=== PATIENT | female | born 1930 | race Caucasian/White ===

== ENCOUNTER 2016-09-16 15:46 | Emergency (ER) | payer MEDICARE ==
[2016-09-16 16:45] LABS: ABSOLUTE NEUTROPHIL COUNT 3.8 K/mm3 (1.8-7.7); BASO % 0.6 % (0.2-1.0); EOS % 0.2 % (0.9-2.9); HEMATOCRIT 34.9 % (37.0-47.0); HEMOGLOBIN 11.1 gm/l (12.0-16.0); IMM NEUT% 0.2 % (0-1); LYMPH # 0.8 (1.0-4.8); LYMPH % 15.5 % (15-45); MEAN CELL VOLUME 100.3 fl (81.0-99.0); MEAN CORPUSCULAR HEMOGLOBIN 31.9 pg (27.0-31.0); MEAN CORPUSCULAR HGB CONC 31.8 g/dl (33.0-37.0); MEAN PLATELET VOLUME 11.7 fl (7.4-10.4); MONO # 0.6 (0.0-0.8); MONO % 11.6 % (4-12); NEUT % 71.9 % (43-75); PLATELET COUNT 153 K/mm3 (130-400); RED CELL DISTRIBUTION WIDTH 13.9 % (11.5-14.5)
[2016-09-16 16:49] LABS: URINE BILIRUBIN NEGATIVE (NEGATIVE); URINE BLOOD 1+ (NEGATIVE); URINE GLUCOSE (UA) NEGATIVE (NEGATIVE); URINE LEUKOCYTE ESTERASE NEGATIVE (NEGATIVE); URINE NITRITE POSITIVE (NEGATIVE); URINE PROTEIN NEGATIVE (NEGATIVE); URINE UROBILINOGEN NORMAL (0-1 mg/dl)
[2016-09-16 16:51] LABS: URINE APPEARANCE CLEAR; URINE COLOR YELLOW
[2016-09-16 17:00] LABS: URINE RBC 0-2 /hpf
[2016-09-16 17:03] LABS: ALB/GLOB RATIO 1.6 (>1.0); ALBUMIN 3.9 gm/dL (3.5-5.7); CALCIUM 9.3 mg/dL (8.6-10.3); MAGNESIUM 2.2 mg/dL (1.9-2.7)
--- NOTE | 2016-09-16 17:04 | RAD ---
CHEST 2 VIEWS HISTORY: Confusion and weakness. Frontal and lateral chest radiographs dated 09/16/2016. COMPARISON: 09/28/2013 FINDINGS: FOCAL AIRSPACE OPACITY: No gross airspace consolidation. PLEURAL EFFUSION: None. CARDIOMEDIASTINAL SILHOUETTE: Aortic arch calcification. ADDITIONAL POSTPROCEDURAL CHANGE: Evidence of prior cervical fusion, lumbar fusion, and spinal stimulator placement. PNEUMOTHORAX: None identified. OSSEOUS STRUCTURES: Thoracic kyphosis and disc degeneration. IMPRESSION: No acute cardiopulmonary process noted. Evidence of aortic atherosclerosis. Interval change status post spinal fusion and spinal stimulator placement procedures.
[2016-09-16 17:05] LABS: URINE BACTERIA 4+; URINE EPITHELIAL CELLS 0 /hpf
[2016-09-16] MEDS ORDERED: CEFTRIAXONE SODIUM 1 G VIAL ONE (18:19)
[2016-09-16] MEDS ORDERED: SODIUM CHLORIDE 0.9% 100 ML IV ONE (18:20)
== END 2016-09-16 19:16 | disposition home or self-care (01) ==
LOC: ED 15:46
DX: N39.0 Urinary tract infection, site not specified (principal); R06.00 Dyspnea, unspecified; D64.9 Anemia, unspecified; I10 Essential (primary) hypertension
CPT/HCPCS: 83690; 83880; 85025; 87086; 80053; 87186; 83735; 84484; 81001; 71020; 99283 ×2; 96374; 93005 ×2; J0696; J7050

== ENCOUNTER 2016-09-19 18:09 | Observation (INO) | payer MEDICARE ==
[2016-09-19 18:43] LABS: ABSOLUTE NEUTROPHIL COUNT 6.7 K/mm3 (1.8-7.7); BASO % 0.1 % (0.2-1.0); EOS % 0.3 % (0.9-2.9); HEMATOCRIT 35.6 % (37.0-47.0); HEMOGLOBIN 11.6 gm/l (12.0-16.0); IMM NEUT% 0.4 % (0-1); LYMPH # 0.8 (1.0-4.8); LYMPH % 10.4 % (15-45); MEAN CELL VOLUME 98.1 fl (81.0-99.0); MEAN CORPUSCULAR HGB CONC 32.6 g/dl (33.0-37.0); MEAN PLATELET VOLUME 11.7 fl (7.4-10.4); MONO # 0.4 (0.0-0.8); MONO % 4.9 % (4-12); NEUT % 83.9 % (43-75); PLATELET COUNT 150 K/mm3 (130-400); RED CELL DISTRIBUTION WIDTH 13.7 % (11.5-14.5)
[2016-09-19] MEDS ORDERED: ALBUTEROL/IPRATROPIUM 2.5/0.5 MG 3 ML/EACH DOSE ONE (18:51)
[2016-09-19] MEDS ORDERED: SODIUM CHLORIDE 0.9% 500 ML ONE (19:01)
[2016-09-19] MEDS ORDERED: ONDANSETRON 4 MG/2ML 2 ML VIAL ONE (19:01)
[2016-09-19] MEDS ORDERED: ACETAMINOPHEN 325 MG TABLET ONE (19:01)
[2016-09-19 19:05] LABS: ALB/GLOB RATIO 1.6 (>1.0); ALBUMIN 3.6 gm/dL (3.5-5.7); CALCIUM 8.3 mg/dL (8.6-10.3)
[2016-09-19] MEDS ORDERED: FUROSEMIDE 40 MG/4 ML VIAL ONE (20:40)
[2016-09-19 21:05] LABS: URINE BILIRUBIN NEGATIVE (NEGATIVE); URINE BLOOD NEGATIVE (NEGATIVE); URINE GLUCOSE (UA) NEGATIVE (NEGATIVE); URINE LEUKOCYTE ESTERASE NEGATIVE (NEGATIVE); URINE NITRITE NEGATIVE (NEGATIVE); URINE PROTEIN NEGATIVE (NEGATIVE); URINE UROBILINOGEN NORMAL (0-1 mg/dl)
[2016-09-19 21:08] LABS: URINE APPEARANCE CLEAR; URINE COLOR YELLOW
[2016-09-19 21:58] VITALS: BMI 23.8
[2016-09-19] MEDS ORDERED: SODIUM CHLORIDE 0.9% 100 ML IV PRN (22:28)
[2016-09-19] MEDS ORDERED: BISACODYL 10 MG SUP PR PRN (22:28)
[2016-09-19] MEDS ORDERED: ACETAMINOPHEN 325 MG TABLET PO PRN (22:28)
[2016-09-19] MEDS ORDERED: MENTHOL/CETYLPYRD 1 EACH LOZENGE PO PRN (22:28)
[2016-09-19] MEDS ORDERED: BLISTEX LIPSTICK 1 EACH TP PRN (22:28)
[2016-09-19] MEDS ORDERED: BISACODYL 5 MG TABLET.EC PO PRN (22:28)
[2016-09-19] MEDS ORDERED: MAGNESIUM HYDROXIDE 30 ML UDCUP PO PRN (22:28)
[2016-09-19] MEDS ORDERED: ALBUTEROL SULFATE 200 PUFFS/INH INHALER IH PRN (22:50)
[2016-09-19] MEDS ORDERED: ALBUTEROL/IPRATROPIUM 2.5/0.5 MG 3 ML/EACH DOSE IH PRN (22:50)
[2016-09-20] MEDS: BUDESONIDE 0.5 MG/2 ML VIAL.NEB IH SCH ×2 (00:49→09:29)
[2016-09-20] MEDS: METOPROLOL TARTRATE 25 MG TABLET PO SCH ×2 (00:49→09:06)
[2016-09-20 06:02] LABS: ABSOLUTE NEUTROPHIL COUNT 3.3 K/mm3 (1.8-7.7); BASO % 0.2 % (0.2-1.0); EOS % 0.2 % (0.9-2.9); HEMATOCRIT 29.9 % (37.0-47.0); HEMOGLOBIN 9.8 gm/l (12.0-16.0); IMM NEUT% 0.4 % (0-1); LYMPH # 1.1 (1.0-4.8); LYMPH % 22.9 % (15-45); MEAN CELL VOLUME 96.5 fl (81.0-99.0); MEAN CORPUSCULAR HEMOGLOBIN 31.6 pg (27.0-31.0); MEAN CORPUSCULAR HGB CONC 32.8 g/dl (33.0-37.0); MEAN PLATELET VOLUME 12.1 fl (7.4-10.4); MONO # 0.3 (0.0-0.8); MONO % 7.1 % (4-12); NEUT % 69.2 % (43-75); PLATELET COUNT 118 K/mm3 (130-400); RED CELL DISTRIBUTION WIDTH 13.7 % (11.5-14.5)
--- NOTE | 2016-09-20 06:23 | RAD ---
EXAMINATION:CHEST - 2 VIEWS CLINICAL INDICATION: Sic. Cough for 4 days. COMPARISON:none FINDINGS: Cardiomegaly with aortic ectasia similar to the prior study. Prominent bronchovascular markings are unaltered. Mild basilar atelectasis is noted left greater than right. No lobar consolidation is identified. Postsurgical changes are unaltered. IMPRESSION: Stable senescent changes and postsurgical changes of the thorax. There are low lung volumes with mild basilar atelectasis. No superimposed acute infiltrate is identified.
[2016-09-20 06:28] LABS: CALCIUM 7.6 mg/dL (8.6-10.3)
[2016-09-20] MEDS ORDERED: LEVOTHYROXINE SODIUM 25 MCG TABLET PO SCH (07:30)
[2016-09-20] MEDS ORDERED: DOCUSATE SODIUM 100 MG CAPSULE PO SCH (09:00)
[2016-09-20] MEDS ORDERED: SIMVASTATIN 10 MG TABLET PO SCH (09:00)
[2016-09-20] MEDS ORDERED: ASPIRIN (ENTERIC COATED) 81 MG TABLET.EC PO SCH (09:00)
[2016-09-20] MEDS ORDERED: CEPHALEXIN 500 MG CAPSULE PO SCH ×2 (09:00→21:00)
[2016-09-20] MEDS ORDERED: POTASSIUM CHLORIDE 10 MEQ TAB.SR PO SCH (09:00)
[2016-09-20] MEDS ORDERED: FUROSEMIDE 40 MG TABLET PO SCH (09:00)
[2016-09-20] MEDS ORDERED: POTASSIUM CHLORIDE 20 MEQ TAB.PRT.SR PO SCH (10:45)
--- NOTE | 2016-09-20 10:57 | PDOC5 ---
ADMIT DATE: 09/19/16 DISCHARGE DATE: 09/20/16 ADMISSION DIAGNOSES: Weakness Discharge Diagnoses: Age related debility CKD Stage 3 CAD with CABG HTN Hypothyroidism Mild Cognitive Impairment HLD Gout UTI, e coli borja sensitive from urine culture obtained 09/16/2016 COPD Diastolic CHF PROCEDURES PERFORMED THIS HOSPITALIZATION: None CONSULTATIONS: None HOSPITAL COURSE: This is a 86 year old female who was admitted for observation due to an inability to ambulate during ED evaluation. She said upon evaluation last night that her legs just quit working and that this has happened before. She does have COPD but only uses her nebulizers once daily, not as prescribed. She slept well overnight, enjoyed breakfast without difficulty. She worked with therapy and did not have difficulty with ambulation in the morning. The patient's daughter was present during therapy and agreed with the patient discharging home. Home therapy evaluation has been requested for possible home PT, OT services if deemed to be of benefit to the patient. - Exam Vital Signs Temperature 98 F 09/20/16 07:00 Pulse Rate 82 09/20/16 07:00 Respiratory Rate 20 09/20/16 08:00 Blood Pressure 122/51 09/20/16 07:00 O2 Saturation by Pulse Oximetry 99 09/20/16 07:00 Oxygen Delivery Method Nasal Cannula Oxygen Flow Rate 2 General: Alert, Oriented x3, Cooperative, No Acute Distress HEENT: PERRLA, EOMI, Mucous membr. moist/pink Lungs: Other (coarse with scattered expiratory wheeze) Cardiovascular: Regular Rate and Rhythm, Normal S1, Normal S2 Abdomen: Soft, Non-Distended, No Rigid, No Tenderness, No Rebounding Extremities: No Cyanosis, No Edema, No Tenderness Neurological: Normal Speech, Other (4-5/5 B/L hpi flexion, dorsi/plantarflexion , horser up strength) Psych/Mental Status: Normal Mood - Results Laboratory 09/20/16 05:30 09/20/16 05:30 09/20/16 05:30 RBC 3.10 L MCH 31.6 H MCHC 32.8 L Estimated GFR 30 L Calcium 7.6 L Imaging Results: CXR: stable senescent changes and postsurgical changes of the thorax. Low lung volumes with mild basilar atelectasis. No superimposed acute infiltrate - Problems:Assessment/Plan (1) Weakness of both legs Status: Acute Assessment/Plan: patient unable to ambulate last night, doing well this morning. She said this has happened before. Home therapy evaluation upon discharge (2) CAD (coronary artery disease), [place] coronary artery Qualifiers: [place] vs. transplanted heart: [place] heart Associated angina: without angina Qualifier Code: (I25.10) Atherosclerotic heart disease of [place] coronary artery without angina pectoris Status: Chronic Assessment/Plan: stable (3) Diastolic CHF Qualifiers: Congestive heart failure chronicity: chronic Qualifier Code: (I50.32) Chronic diastolic (congestive) heart failure Status: Acute Assessment/Plan: acute on chronic with elevation of BNP. No peripheral edema on exam, continue current medications (4) COPD (chronic obstructive pulmonary disease) Qualifiers: COPD type: emphysema Emphysema type: unspecified Qualifier Code: ( J43.9) Emphysema, unspecified Status: Chronic Assessment/Plan: Patient with wheeze on exam, not using nebulizers as prescribed, on oxygen at night. May contribute to weakness if poor oxygenation. Reminded the daughter and patient the importance of following instructions and using the nebulizer as prescribed. (5) UTI (urinary tract infection), bacterial Status: Acute Assessment/Plan: e coli on urine culture, will complete ABx course (6) CKD (chronic kidney disease) stage 3, GFR 30-59 ml/min Status: Chronic Assessment/Plan: monitor, renal adjustment of medications, slight improvement overnight (7) Hypothyroidism Qualifiers: Hypothyroidism type: acquired Qualifier Code: (E03.9) Hypothyroidism, unspecified Status: Chronic Assessment/Plan: stable - Discharge Plan Additional Instructions: Continue taking keflex, take 1 capsule 2 times a day instead of 3 times a day Use breathing treatments as prescribed, more than 1 time a day Follow-up with Dr. Segal in 1 week Condition: Good Disposition: Home
[2016-09-20 11:36] VITALS: BP 111/78
--- NOTE | 2016-09-20 11:49 | HP ---
Jasiel DAVIS [id number] DATE OF : 1930 IDENTIFICATION: This is an 86-year-old female. CHIEF COMPLAINT: Legs gave out. HISTORY OF PRESENT ILLNESS: Patient with dementia presenting alone to the medical floor this evening. She provides a poor history of her medical history and events occurring, somewhat ok history of events that led to the hospitalization. No family members currently available. The patient said for the past 3 days she has had increasing cough, and runny nose. No fevers, no chest pain, abdominal pain, or other symptoms accompanying this. Then two days ago, she developed weakness. Her legs quit working she says. She goes to take a step and they start shaking and they will not work for her. She mentioned twice that this has happened in the past, but in trying to obtain historical details, she says it just happened a day ago. It is difficult to ascertain if this has happened in the past, or if it is new in the past 2 days. She has no other complaints at this time. When questioned regarding taking all of her medications, she does say that she has inhaler medicines she is supposed to take four times a day, but she takes it once a day if she feels like she needs it and she is not using it per recommendation. PAST MEDICAL HISTORY: Include: 1. Physical instability. 2. Anxiety. 3. Back pain. 4. Breast cancer. 5. Chronic kidney disease stage III. 6. Coronary artery disease. 7. Hypertension. 8. Gout. 9. Hyperlipidemia. 10. Hypothyroidism. 11. Cognitive impairment. 12. Restless legs. 13. Arthritis. PAST SURGICAL HISTORY: Includes: 1. Coronary artery bypass. 2. Back surgery. 3. Lumpectomy of the left breast. 4. Carotid endarterectomy. 5. Cholecystectomy. 6. Hemorrhoidectomy. 7. Hernia repair. 8. Hysterectomy. 9. Tonsillectomy. 10. Coronary artery disease with catheterization with an ejection fraction of 70% and stent in the right coronary artery. CURRENT MEDICATIONS: Include: 1. Aspirin. 2. Metoprolol. 3. Furosemide. 4. Potassium chloride. 5. Simvastatin. 6. Levothyroxine. 7. Tramadol. 8. Budesonide. 9. Ipratropium Albuterol. 10. ProAir. 11. Oxygen for sleeping 2 L. 12. Vitamin D3. 13. Vitamin E. 14. Citracal calcium pearls. 15. Stool softener as needed. 16. Miralax. 17. Dulcolax as needed. 18. Zantac as needed. 19. Colcrys. 20. She alternates between Benadryl and Zyrtec. ALLERGIES: CODEINE, CYMBALTA, ISOSORBIDE MORPHINE. SOCIAL HISTORY: She lives with her daughter. She has a past history of tobacco use. Currently, no drugs or alcohol. FAMILY HISTORY: There is a family medical history of uterine cancer, and breast cancer, diabetes, hypertension, and stroke. REVIEW OF SYSTEMS: General: No fevers, or chills. HEENT: Runny nose, no sore throat. Cardiovascular: No chest pain, or pressure. Respiratory: Cough, no mucus production, no shortness of breath. Abdomen: No nausea, vomiting, or abdominal pain. Genitourinary: No burning with urination. Musculoskeletal: Weakness. Neurologic: He headaches, numbness, tingling, no lightheadedness. PHYSICAL EXAMINATION: VITAL SIGNS: Temperature is 98.6. Heart rate is 79. Blood pressure is 106/49. She is saturating 98% on 2 L. GENERAL: She is alert, and oriented to person and place. She is in no acute distress. HEENT: Normocephalic, atraumatic. No tenderness to palpation. Mucous membranes are moist. There is no scleral icterus, or conjunctival injection. Her pupils are equal, round and reactive. NECK: Supple, trachea is midline. CARDIOVASCULAR: Regular. Positive S1, S2. She has palpable pulses bilaterally radially and PT. No peripheral edema. RESPIRATORY: Expiratory wheezing a little coarse bilateral bases with crackles. ABDOMEN: Soft, nontender. No rebound. No guarding. There is abdominal hernia that is reproducible, and soft. MUSCULOSKELETAL: She is moving extremities without difficulty. She is nontender. She has 4/5 to 5/5 bilateral hip flexion, dorsoplantar flexion, powder coater strength, arm flexion and extension. NEUROLOGIC: She is alert, and oriented. LABORATORY DATA: Sodium is 135, potassium 4.1, chloride of 101, carbon dioxide of 24, BUN 25, creatinine 1.7, and glucose 113. Troponin was less than 0.1. BNP of 574. White blood count is 7.8, hemoglobin 9.5, hematocrit 35.6, with a platelet count of 150. A VBG lactate was 1.2. Urinalysis was yellow and clear, negative for glucose, ketones, leukocyte esterase, and nitrates. Influenza A and B were negative. Microbiology from urine culture on 09/16/2016 with pansensitive Escherichia coli. DIAGNOSTIC IMAGING: An echocardiogram in 2012 showed an ejection fraction of 73% with an abnormal diastolic function. For her dementia, mini-mental status exam showed a [facility] mental status examination (UMS) score of 21/30 with a moderate cognitive loss. For her chronic obstructive pulmonary disease. Patient has mild chronic obstructive pulmonary disease with bronchiolectasis and mild pulmonary hypertension. Chest x-ray was obtained in the emergency department. It does not show acute infiltrate, or effusion at this time. Evidence of prior cervical spinal procedures. ASSESSMENT AND PLAN: This is an 86-year-old female with a complex medical history including diastolic heart failure, chronic obstructive pulmonary disease, coronary artery disease, presenting for weakness, and cough for 3 days. She was evaluated on 09/16/2016 in the emergency department for similar complaints and was treated for a urinary tract infection. Her urinary symptoms have since resolved. There is evidence of heart failure on laboratory studies and coarse breath sounds on exam. 1. Diastolic heart failure acute and chronic. Provide additional dose of Lasix, monitor the patient's [id number], supplemental oxygen as needed. 2. Weakness multifactorial including debility, recent infection, possible viral upper respiratory tract infection with cough and congestion. Progressive disease. 3. Chronic obstructive pulmonary disease. We will provide breathing treatments. If her oxygen saturations remain low may consider steroid use. 4. Coronary artery disease stable at this time. We will continue her home medications. 5. Hypothyroidism, stable. Continue her home medications. 6. Anemia chronic. She is at her baseline hemoglobin. We will monitor for symptoms, and any changes. 7. For her weakness, we will have physical therapy work with her. 8. Hypertension, stable. Continue her home medications. 9. Hyperlipidemia, stable. Continue her home medications. 10. Mild cognitive impairment. We will evaluate patient for possible placement. Depending upon her weakness evaluation it complicates medical care with her dementia. 11. Patient has POLST from 2009 that indicates she is a DO NOT RESUSCITATE/DO NOT INTUBATE. We will follow these wishes. JENNIFER/balta Cc: Dr. Aguilar Segal
[2016-09-21] MEDS ORDERED: POTASSIUM CHLORIDE 20 MEQ TAB.PRT.SR PO SCH (09:00)
== END 2016-09-20 12:10 | disposition home or self-care (01) ==
LOC: ED 18:09 → MS 20:50
PROVIDERS: ADMIT Family Medicine; ATTEND Family Medicine
DX: I13.0 Hypertensive heart and chronic kidney disease with heart failure and stage 1 through stage 4 chronic kidney disease, or unspecified chronic kidney disease (principal); N18.3 Chronic kidney disease, stage 3 (moderate); I50.33 Acute on chronic diastolic (congestive) heart failure; F03.90 Unspecified dementia, unspecified severity, without behavioral disturbance, psychotic disturbance, mood disturbance, and anxiety; F41.9 Anxiety disorder, unspecified; M54.9 Dorsalgia, unspecified; I25.10 Atherosclerotic heart disease of native coronary artery without angina pectoris; M10.9 Gout, unspecified; E78.5 Hyperlipidemia, unspecified; E03.9 Hypothyroidism, unspecified; J44.9 Chronic obstructive pulmonary disease, unspecified; D64.9 Anemia, unspecified; G31.84 Mild cognitive impairment of uncertain or unknown etiology; Z66 Do not resuscitate; Z95.1 Presence of aortocoronary bypass graft; N39.0 Urinary tract infection, site not specified; B96.20 Unspecified Escherichia coli [E. coli] as the cause of diseases classified elsewhere
CPT/HCPCS: 83605; 83880; 85025 ×2; 87040 ×2; 80048; 80053; 83735; 81003; 84484; 36415 ×2; 71020; 87804; 94640 ×2; 97162; 97165; 96375; 99285 ×2; 96374; 51702; 93005; A9270 ×9; J7626 ×2; J1940; J2405; J7040; G0378 ×2; G8978; G8979